=== PATIENT | female | born 1980 | race Caucasian/White ===

== ENCOUNTER → 2018-07-05 | Outpatient (CLI) | payer SELFPAY ==
--- NOTE | 2018-07-05 15:08 | RADIOLOGY REPORT (SQ) ---
EXAM DESCRIPTION: U/S [id number] TRNABD 1GES W/ODOP COMPLETED DATE/TIME: 07/05/2018 1:16 pm REASON FOR STUDY: ENCTR FOR SUPERVISION OF OTHER NORMAL , 1ST TRIMESTER (Z34.81) Z34.81 EN COUNTER FOR SUPRVSN OF NORMAL , FIRST TRIM COMPARISON: None. TECHNIQUE: Transabdominal static and realtime grayscale images acquired of the pelvis. Additional se lected spectral and color Doppler images recorded. All images stored on PACs. bHCG: Not applicable. CLINICAL DATES: LMP 04/11/2018. 12 weeks 1 day. LIMITATIONS: None. FINDINGS: FETUS: Single Living intrauterine . ULTRASOUND EGA: 12 weeks 3 days. ULTRASOUND JOHNNIE: 01/14/2019 EFW: Not applicable less than 20 weeks. CRL: 6 cm. FHR: 163 beats per minute. SURVEY: Too early to assess. AMNIOTIC FLUID: Adequate amount. PLACENTA: Not yet developed due to early gestation. SUBCHORIONIC BLEED: No SIZE OF BLEED: Not applicable. UTERUS: No masses or anomalies. 14.6 x 9.9 x 9 cm. CERVICAL LENGTH: 3 cm. Closed. RIGHT ADNEXA: Ovary not seen. No adnexal free fluid. No adnexal masses. LEFT ADNEXA: Normal ovary with normal vascular flow. 2.6 x 2.2 x 1.9 cm. No adnexal free fluid. No adnexal masses. FREE FLUID: None. OTHER: No other significant finding. IMPRESSION: LIVING INTRAUTERINE . EGA 12 weeks 3 days. Trimester of : First - 0 to 13 weeks. TECHNICAL DOCUMENTATION: JOB ID: [id number]- All Rights Reserved rev-01/27 Reading location - IP/workstation name: [email or web address]
== END ==
LOC: RAD 12:42
PROVIDERS: ATTEND Nurse Practitioner
DX: Z34.81 Encounter for supervision of other normal pregnancy, first trimester (principal)
CPT/HCPCS: 76801

== ENCOUNTER 2018-07-15 14:08 | Emergency (ER) | payer MEDICAID ==
[2018-07-15] MEDS ORDERED: LORAZEPAM 1 MG TABLET PO ONE (14:25)
--- NOTE | 2018-07-15 14:27 | ER Document Report ---
ED Medical Screen (RME) - General Chief Complaint: Anxiety Stated Complaint: ANXIETY, ABDOMINAL PAIN Time Seen by Provider: 07/15/18 14:24 Mode of Arrival: Ambulatory Information source: Patient TRAVEL OUTSIDE OF THE [place] IN LAST 30 DAYS: No - HPI Patient complains to provider of: panic attack Onset: This morning - pt states her boyfriend left her recently when he found out she was . She has been having a panic attack since earlier today. Denies suicidal/homicidal ideation - Related Data Allergies/Adverse Reactions: No Known Allergies Allergy (Unverified 07/15/18 14:09) Physical Exam - Vital signs Vitals: Temp Pulse Resp BP Pulse Ox 98.5 F 103 H 20 137/80 H 98 07/15/18 14:15 07/15/18 14:15 07/15/18 14:15 07/15/18 14:15 07/15/18 14:15 Course - Vital Signs Vital signs: Temp Pulse Resp BP Pulse Ox 98.5 F 103 H 20 137/80 H 98 07/15/18 14:15 07/15/18 14:15 07/15/18 14:15 07/15/18 14:15 07/15/18 14:15 Doctor's Discharge - Discharge Instructions: Anxiety ([facility]) Referrals: CATHERINE BLAIR, [employer] WORK[employer] [Primary Care Provider] - Follow up as needed
[2018-07-15 15:05] LABS: ABSOLUTE BASOPHILS # (AUTO) 0.1 10^3/uL (0.0-0.2); ABSOLUTE EOSINOPHILS # (AUTO) 0.2 10^3/uL (0.0-0.6); ABSOLUTE LYMPHOCYTES (AUTO) 2.5 10^3/uL (0.5-4.7); ABSOLUTE MONOCYTES (AUTO) 1.1 10^3/uL (0.1-1.4); ABSOLUTE NEUT (AUTO) 12.4 10^3/uL (1.7-8.2); BASOPHILS % (AUTO) 0.5 % (0-2); HEMATOCRIT 37.6 % (36.0-47.0); HEMOGLOBIN 12.9 g/dL (12.0-15.5); LYMPHOCYTES % (AUTO) 15.2 % (13-45); MEAN CORPUSCULAR HEMOGLOBIN 26.8 pg (27.0-33.4); MEAN CORPUSCULAR HGB CONC 34.2 g/dL (32.0-36.0); MEAN CORPUSCULAR VOLUME 78 fl (80-97); MONOCYTES % (AUTO) 6.9 % (3-13); PLATELET COUNT 250 10^3/uL (150-450); RED CELL DISTRIBUTION WIDTH 15.8 % (11.5-14.0); SEGMENTED NEUTROPHILS % (AUTO) 76.4 % (42-78); TOTAL CELLS COUNTED % (AUTO) 100 %; WHITE BLOOD COUNT 16.3 10^3/uL (4.0-10.5)
[2018-07-15 15:08] LABS: APPEARANCE,URINE CLOUDY; BILIRUBIN,URINE NEGATIVE (NEGATIVE); COLOR,URINE AMBER; GLUCOSE, URINE NEGATIVE (NEGATIVE); KETONES,URINE 80 mg/dL (NEGATIVE); LEUKOCYTE ESTERASE,URINE NEGATIVE (NEGATIVE); NITRITE,URINE NEGATIVE (NEGATIVE); PROTEIN,URINE NEGATIVE (NEGATIVE); URINE SPECIFIC GRAVITY 1.024
[2018-07-15 15:31] LABS: ALANINE AMINOTRANSFERASE 16 U/L (9-52); ALKALINE PHOSPHATASE 47 U/L (38-126); ASPARTATE AMINO TRANSFERASE 16 U/L (14-36); BILIRUBIN,DIRECT 0.2 mg/dL (0.0-0.4); BILIRUBIN,TOTAL 0.6 mg/dL (0.2-1.3); BLOOD UREA NITROGEN 10 mg/dL (7-20); CALCIUM 10.1 mg/dL (8.4-10.2); CHLORIDE 104 mmol/L (98-107); GLUCOSE 111 mg/dL (75-110); POTASSIUM 3.6 mmol/L (3.6-5.0); SODIUM 142.4 mmol/L (137-145)
[2018-07-15 15:32] LABS: ALBUMIN 4.7 g/dL (3.5-5.0); ANION GAP 13 (5-19); CARBON DIOXIDE 25 mmol/L (22-30); TOTAL PROTEIN 7.9 g/dL (6.3-8.2)
--- NOTE | 2018-07-15 17:35 | ER Document Report ---
ED General - General Chief Complaint: Anxiety Stated Complaint: ANXIETY, ABDOMINAL PAIN Time Seen by Provider: 07/15/18 14:24 Mode of Arrival: Ambulatory TRAVEL OUTSIDE OF THE [place] IN LAST 30 DAYS: No - HPI Patient complains to provider of: Anxiety abdominal pain Notes: Patient coming in with panic attack anxiety along with abdominal cramping. Patient is approximately 13-14 weeks. Patient states that she is currently from her however is with her lovers child who recently informed her that he did not want to be the father of the child and went back to his . The person next the Shi patient states that she has been in contact with his commands as that the patient also has declined responsibility for lease agreements states this has increased stress in her life and therefore had an anxiety attack today has a history of anxiety is currently on clonazepam for her anxiety patient states her recent visit with her psychiatric provider recommend to start her on Latuda however states she is not taking it this medication because she is also she is aware that her Cloxapen is not healthy for the . Patient states she has been taking vitamins and has [facility]. Patient denies any vaginal bleeding at this time. Patient is a with 2 miscarriages. Patient states she has a appointment to see [facility] on July 26. Denies any suicidal homicidal ideation. Denies any fever chills nausea vomiting diarrhea patient initially is calm however becomes quite tearful during the HPI process in obtaining information about her current situation patient was ordered Ativan by the triage provider not myself this is already been administered prior to my evaluation - Related Data Allergies/Adverse Reactions: No Known Allergies Allergy (Verified 07/15/18 14:32) Past Medical History - General Information source: Patient - Social History Smoking Status: Current Every Day Smoker Chew tobacco use (# tins/day): No Frequency of alcohol use: None Drug Abuse: None Family History: Reviewed & Not Pertinent Patient has suicidal ideation: No Patient has homicidal ideation: No Pulmonary Medical History: Reports: Hx Asthma Renal/ Medical History: Denies: Hx Peritoneal Dialysis Psychiatric Medical History: Comment Only: Hx Depression - anxiety Past Surgical History: Reports: Hx Cholecystectomy, Hx Tonsillectomy Review of Systems - Review of Systems Constitutional: No symptoms reported EENT: No symptoms reported Cardiovascular: No symptoms reported Respiratory: No symptoms reported Gastrointestinal: No symptoms reported Genitourinary: No symptoms reported Female Genitourinary: No symptoms reported Musculoskeletal: No symptoms reported Skin: No symptoms reported Hematologic/Lymphatic: No symptoms reported Neurological/Psychological: Anxiety -: Yes All other systems reviewed and negative Physical Exam - Vital signs Vitals: Temp Pulse Resp BP Pulse Ox 98.5 F 103 H 20 137/80 H 98 07/15/18 14:15 07/15/18 14:15 07/15/18 14:15 07/15/18 14:15 07/15/18 14:15 Interpretation: Normal - General General appearance: Appears well, Alert - HEENT Head: Normocephalic, Atraumatic Eyes: Normal Pupils: PERRL - Respiratory Respiratory status: No respiratory distress Chest status: Nontender Breath sounds: Normal Chest palpation: Normal - Cardiovascular Rhythm: Regular Heart sounds: Normal auscultation Murmur: No - Abdominal Inspection: Normal Distension: No distension Bowel sounds: Normal Tenderness: Nontender Organomegaly: No organomegaly - Back Back: Normal, Nontender - Extremities General upper extremity: Normal inspection, Nontender, Normal color, Normal ROM , Normal temperature General lower extremity: Normal inspection, Nontender, Normal color, Normal ROM , Normal temperature, Normal weight bearing. No: Opal's sign - Neurological Neuro grossly intact: Yes Cognition: Normal Orientation: AAOx4 Marisel Coma Scale Eye Opening: Spontaneous Marisel Coma Scale Verbal: Oriented [place] Coma Scale Motor: Obeys Commands Marisel Coma Scale Total: 15 Speech: Normal Motor strength normal: LUE, RUE, LLE, RLE Sensory: Normal - Psychological Associated symptoms: Normal affect, Normal mood - Skin Skin Temperature: Warm Skin Moisture: Dry Skin Color: Normal Course - Re-evaluation Re-evalutation: 07/15/18 22:54 Patient was evaluated by psychiatric team and recommended to follow-up with her primary care provider. Bedside ultrasound showed heart rate of 140-143 with positive motion. Patient laboratory studies not revealing critical pathology at this time I recommend patient continue on with a good diet drinking plenty of fluids patient states understanding patient was given resources for follow-up patient was discharged home - Vital Signs Vital signs: Temp Pulse Resp BP Pulse Ox 98.4 F 80 16 112/74 100 07/15/18 18:04 07/15/18 18:04 07/15/18 18:04 07/15/18 18:04 07/15/18 18:04 - Laboratory Result Diagrams: 07/15/18 14:35 07/15/18 14:35 Laboratory results interpreted by me: 07/15/18 07/15/18 07/15/18 14:35 14:35 14:35 WBC 16.3 H MCV 78 L MCH 26.8 L RDW 15.8 H Absolute Neutrophils 12.4 H Creatinine 0.51 L Glucose 111 H Beta HCG, Quant Urine Ketones 80 H Urine Urobilinogen 2.0 H Urine Ascorbic Acid 40 H Urine HCG, Qual POSITIVE H 07/15/18 14:35 WBC MCV MCH RDW Absolute Neutrophils Creatinine Glucose Beta HCG, Quant 90023.00 H Urine Ketones Urine Urobilinogen Urine Ascorbic Acid Urine HCG, Qual Procedures - Ultrasound/Bedside heart tones Notes: 07/15/18 22:55 Bedside ultrasound shows heart tones at 140-143. Is positive motion Discharge - Discharge Clinical Impression: Anxiety Qualifiers: Weeks of gestation: 13 weeks Qualified Code(s): Z3A.13 - 13 weeks gestation of Condition: Stable Disposition: HOME, SELF-CARE Instructions: Anxiety ([facility]), ([facility]) Additional Instructions: Laboratory studies not show any acute findings at this time. I recommend she follow-up with your primary care physician return to the ER symptoms worsen. I highly recommend she follow-up with your therapist to aid with weaning off of your anxiety medication. I recommended we start you on a medication called Vistaril to take at nighttime. He may also use Reglan as needed for any nausea that she may have. For nausea and vomiting during I recomment: Start with 10-12.5 mg of pyridoxine (vitamin B6) three times a day for 2 days. If not fully effective, Increase to 12.5 mg of pyridoxine four times a day for 2 days. If not fully effective, Increase to 25 mg of pyridoxine three times a day for 2 days. If not fully effective, Continue 25 mg pyridoxine 3 times a day, and add 12.5 mg of doxylamine before bedtime each day for 2 days. If not fully effective, Continue 25 mg pyridoxine 3 times a day, and take 12.5 mg of doxylamine twice a day. If not fully effective, Continue 25 mg pyridoxine 3 times a day, and take 12.5 mg of doxylamine three times a day. If not fully effective, Continue 25 mg pyridoxine 3 times a day, and 12.5 mg of doxylamine 3 times a day , while adding Emetrol, one to two tablespoons (15-30 cc) taken once or twice a day as needed. (Emetrol is an zoaj-pwo-zasukxy mixture of sugar syrups and phosphoric acid [phosphorylated carbohydrate solution]) that acts by soothing the actual wall of the gastrointestinal tract). If not fully effective, Consult with your doctor. Anxiety The physician feels that some of your health problems are being caused by anxiety. Anxiety affects your health in many ways. Anxiety alone can cause palpitations, sweats, chest pains, abdominal pains, shortness of breath, and headaches. It contributes to ulcer disease, high blood pressure, irritable bowel syndrome, and has been shown to cause flare-ups of many other diseases. Anxiety is not a simple disorder to treat. If the anxiety is due to recent life stresses, you may simply need time to "work through" the changes. If the anxiety is due to an underlying unhappiness with yourself or due to psychiatric disturbance, professional help will be needed. Your physician can refer you for further help if needed. Anti-anxiety medication is occasionally given if the stress is acute or if you are having trouble sleeping. Chronic or frequent use of these medications is not a good idea because the body becomes reliant on it, preventing you from dealing with life's normal stresses. Prescriptions: Hydroxyzine Pamoate [Vistaril 25 mg Capsule] 25 mg PO QHS #14 capsule Metoclopramide HCl [Reglan] 5 mg PO Q6 #30 tablet Referrals: CATHERINE BLAIR APRN [NO LOCAL MD] - Follow up as needed
[2018-07-15] MEDS ORDERED: HYDROXYZINE PAMOATE 25 MG CAPSULE PO ONE (17:46)
[2018-07-15 18:05] VITALS: BP 112/74
--- NOTE | 2018-07-15 18:27 | PSYCHOLOGICAL NOTE ---
Psych Note - Psych Note Psych Note: Reason for consult: anxiety Pt into ER today with c/o severe panic attack. Pt states she is 13 weeks . The father of her baby left her 3 days ago to reconcile with his . PT states she has only slept 4 hours in the last 3 days and is in panic. She is treated for anxiety and took clonazepam this morning at 0530. It did not help. On arrival to ER, pt is actively crying and clutching her stomach stating she is cramping. Patient states that earlier today she began to feel uneasy and thought she was having a panic attack. Patient disclosed that the father of her baby left their home on night and has no plans to return back to the home. Patient states that she is 13 weeks and that he is the father of her unborn child. Patient states that since he left she has been unable to sleep or eat, just overall sad about her situation. Patient states that she was prescribed clonazepam by Dr. Gonzáles on 06/05/18 and has been taking it as prescribed. Patient denies suicidal ideation. Patient denies homicidal ideation. Patient confirmed that she does not own any weapons or have weapons in the home. Patient states that she is considering moving back [place], where she is from and she has family support. Patient states that she is receiving services through the [facility] and has an appointment with [facility] later this month for mental health services. Patient states that she has been in contact with the patient's command and that they will assist her in any way possible. Patient is alert and oriented to person, place, time and circumstance. Patient' s mood is dysphoric with a tearful affect. Patient demonstrates a organized and linear thought process. Eye Contact is well maintained. Conversational speech was within normal rate, tone and prosody. Intellectual abilities appear to be within the average range. Attention and concentration were fair. Insight, judgment and impulse control are good. No medication recommendations at this time Diagnosis 300.02 (F41.1) Generalized Anxiety Disorder Impression/Plan: Patient is cleared from acute psychiatric services. Patient denies suicidal ideation. Patient denies homicidal ideation. Patient has an appointment with [facility] later this month and is receiving case management services through [facility]. Patient's family is in [place] and is supportive and will be helping her with any transition back to [place]. Dr. Nava was consulted on the care and management of this patient ; attending physician is in agreement with recommendations and disposition.
== END 2018-07-15 18:04 | disposition home or self-care (01) ==
LOC: ER 14:08
DX: O99.341 Other mental disorders complicating pregnancy, first trimester (principal); F41.9 Anxiety disorder, unspecified; Z79.899 Other long term (current) drug therapy; O26.891 Other specified pregnancy related conditions, first trimester; R10.9 Unspecified abdominal pain; O99.331 Smoking (tobacco) complicating pregnancy, first trimester; O99.511 Diseases of the respiratory system complicating pregnancy, first trimester; J45.909 Unspecified asthma, uncomplicated; Z3A.13 13 weeks gestation of pregnancy; Z63.0 Problems in relationship with spouse or partner; Z87.59 Personal history of other complications of pregnancy, childbirth and the puerperium
CPT/HCPCS: 99285; 36415; 84702; 85025; 81025; 80053; 81001; J3490

== ENCOUNTER 2018-07-17 15:31 | Emergency (ER) | payer MEDICAID ==
--- NOTE | 2018-07-17 15:52 | ER Document Report ---
ED Medical Screen (RME) - General Chief Complaint: Shortness Of Breath Stated Complaint: DIFFICULTY BREATHING Time Seen by Provider: 07/17/18 15:42 Mode of Arrival: Ambulatory Information source: Patient Notes: 38-year-old female who is 14 weeks presents emergency department with complaints of panic attack. Patient states that her significant other in the baby's father walked out on them on . Patient states that she has had increased stress since then. She states that she has been having panic attacks as a result of this. She states that she is currently taking clonazepam. She states that she was unable to fill the prescription for Vistaril. Patient feels the baby moving. She has an appointment with her [employer] tomorrow. I have greeted and performed a rapid initial assessment of this patient. A comprehensive ED assessment and evaluation of the patient, analysis of test results and completion of the medical decision making process will be conducted by additional ED providers. PHYSICAL EXAMINATION: GENERAL: Well-appearing, well-nourished and in no acute distress. HEAD: Atraumatic, normocephalic. EYES: Pupils equal round extraocular movements intact, conjunctiva are normal. ENT: Nares patent NECK: Normal range of motion LUNGS: No respiratory distress Musculoskeletal: Normal range of motion NEUROLOGICAL: Normal speech, normal gait. PSYCH: Normal mood, normal affect. SKIN: Warm, Dry, normal turgor, no rashes or lesions noted. TRAVEL OUTSIDE OF THE [place] IN LAST 30 DAYS: No - Related Data Allergies/Adverse Reactions: No Known Allergies Allergy (Verified 07/15/18 14:32) Past Medical History - Social History Frequency of alcohol use: None Drug Abuse: None Pulmonary Medical History: Reports: Hx Asthma Renal/ Medical History: Denies: Hx Peritoneal Dialysis Psychiatric Medical History: Comment Only: Hx Depression - anxiety Past Surgical History: Reports: Hx Cholecystectomy, Hx Tonsillectomy Physical Exam - Vital signs Vitals: Temp Pulse Resp BP Pulse Ox 98.8 F 97 20 125/74 98 07/17/18 15:36 07/17/18 15:36 07/17/18 15:36 07/17/18 15:36 07/17/18 15:36 Course - Vital Signs Vital signs: Temp Pulse Resp BP Pulse Ox 98.8 F 97 20 125/74 98 07/17/18 15:36 07/17/18 15:36 07/17/18 15:36 07/17/18 15:36 07/17/18 15:36
[2018-07-17 16:25] LABS: ABSOLUTE EOSINOPHILS # (AUTO) 0.1 10^3/uL (0.0-0.6); ABSOLUTE LYMPHOCYTES (AUTO) 2.7 10^3/uL (0.5-4.7); ABSOLUTE NEUT (AUTO) 9.9 10^3/uL (1.7-8.2); BASOPHILS % (AUTO) 0.3 % (0-2); EOSINOPHILS % (AUTO) 0.9 % (0-6); HEMATOCRIT 38.5 % (36.0-47.0); HEMOGLOBIN 13.2 g/dL (12.0-15.5); LYMPHOCYTES % (AUTO) 19.4 % (13-45); MEAN CORPUSCULAR HEMOGLOBIN 26.8 pg (27.0-33.4); MEAN CORPUSCULAR HGB CONC 34.1 g/dL (32.0-36.0); MEAN CORPUSCULAR VOLUME 79 fl (80-97); MONOCYTES % (AUTO) 7.4 % (3-13); PLATELET COUNT 259 10^3/uL (150-450); RED CELL DISTRIBUTION WIDTH 15.2 % (11.5-14.0); TOTAL CELLS COUNTED % (AUTO) 100 %; WHITE BLOOD COUNT 13.7 10^3/uL (4.0-10.5)
[2018-07-17 16:37] LABS: BLOOD UREA NITROGEN 7 mg/dL (7-20); CALCIUM 9.7 mg/dL (8.4-10.2); GLUCOSE 81 mg/dL (75-110)
[2018-07-17 16:38] LABS: ALANINE AMINOTRANSFERASE 18 U/L (9-52); ALBUMIN 4.6 g/dL (3.5-5.0); ALKALINE PHOSPHATASE 48 U/L (38-126); ANION GAP 15 (5-19); ASPARTATE AMINO TRANSFERASE 22 U/L (14-36); BILIRUBIN,DIRECT 0.1 mg/dL (0.0-0.4); BILIRUBIN,TOTAL 0.5 mg/dL (0.2-1.3); CARBON DIOXIDE 23 mmol/L (22-30); CHLORIDE 101 mmol/L (98-107); POTASSIUM 3.4 mmol/L (3.6-5.0); TOTAL PROTEIN 7.8 g/dL (6.3-8.2)
[2018-07-17 17:03] LABS: APPEARANCE,URINE SLIGHTLY-CLOUDY; BILIRUBIN,URINE NEGATIVE (NEGATIVE); COLOR,URINE YELLOW; GLUCOSE, URINE NEGATIVE (NEGATIVE); KETONES,URINE 20 mg/dL (NEGATIVE); LEUKOCYTE ESTERASE,URINE NEGATIVE (NEGATIVE); NITRITE,URINE NEGATIVE (NEGATIVE); PROTEIN,URINE NEGATIVE (NEGATIVE); URINE SPECIFIC GRAVITY 1.008; UROBILINOGEN,URINE NEGATIVE mg/dL (<2.0)
[2018-07-17 17:24] LABS: URINE AMPHETAMINES SCREEN NEGATIVE; URINE BARBITURATES SCREEN NEGATIVE; URINE BENZODIAZEPINES SCREEN NEGATIVE; URINE COCAINE SCREEN NEGATIVE; URINE MARIJUANA (THC) SCREEN NEGATIVE; URINE METHADONE SCREEN NEGATIVE; URINE PHENCYCLIDINE SCREEN NEGATIVE
--- NOTE | 2018-07-17 18:35 | EKG REPORT ---
SEVERITY:- NORMAL ECG - SINUS RHYTHM : Confirmed by: Sen Suero MD 17-Jul-2018 18:35:28
--- NOTE | 2018-07-17 20:43 | RADIOLOGY REPORT (SQ) ---
EXAM DESCRIPTION: U/S OB 14+ TRNABD 1GES W/O DOP COMPLETED DATE/TIME: 07/17/2018 8:24 pm REASON FOR STUDY: pelvic and lower abdominal pain COMPARISON: 07/05/2018 TECHNIQUE: Static and Dynamic grayscale imaging performed of gravid uterus using transabdominal appr oach. Additional selected color Doppler and spectral images recorded. All stored on PACS. LIMITATIONS: None. FINDINGS: FETUSES SEEN:1 EGA: 14 weeks 3 days Calculated using BPD,FL,HC,AC documented on images. No discrepancy with clinica l dates. JOHNNIE: 01/12/2019 EFW: Not applicable. Grams PERCENTILE: Not applicable. MACK: Adequate PLACENTA: Posterior, low lying. Grade 1 PRESENTATION: Cephalic. ANATOMY: HEART RATE: 145 beats per minute. anatomical survey not performed. MATERNAL ADNEXA: Maternal ovaries not visualized. CERVICAL LENGTH: 3.8 cm. Closed. OTHER: No other significant finding. IMPRESSION: LIVING INTRAUTERINE . ESTIMATED GESTATIONAL AGE 14 weeks 3 days. NO VISUALIZED ANOMALIES. Trimester of : Second trimester - 13 weeks 1 day to 27 weeks 6 days. TECHNICAL DOCUMENTATION: JOB ID: [id number] [employer]- All Rights Reserved Reading location - IP/workstation name: [email or web address]
--- NOTE | 2018-07-17 21:15 | ER Document Report ---
ED GI/ - General Chief Complaint: Shortness Of Breath Stated Complaint: DIFFICULTY BREATHING Time Seen by Provider: 07/17/18 15:42 Mode of Arrival: Ambulatory Information source: Patient Notes: 38-year-old female presented to ED for complaints of panic attack shortness of breath and pelvic pain. She states she been having a panic attack due to all the stress in her life at this time. She states the babies father decided to walk out on her and is gone back to his . She states she left her for him and now she is having a lot of stress and panic attacks due to this. She states she is taking clonazepam for the anxiety and stress. She states she has been told that this is okay with her baby. She states she does feel the baby moving and she has an appointment with [facility] tomorrow. TRAVEL OUTSIDE OF THE [place] IN LAST 30 DAYS: No - HPI Patient complains to provider of: Abdominal pain, Pelvic pain, Onset: Other - Off and on for several days Timing/Duration: Intermittent Quality of pain: Cramping, Sharp Severity at maximum: Moderate Severity in ED: Moderate Pain Level: 3 Location: Pelvis, Other - Lateral lower abdomen Vaginal bleeding (Compared to normal period): None Menstrual period history: : 6 Para: 3 heart tones (bpm): 148 EDC: 01/12/19 OB ultrasound done: Yes Associated symptoms: Shortness of breath, Other - Panic attacks and pelvic and abdominal pain Exacerbated by: Movement, Walking Relieved by: Denies Similar symptoms previously: Yes Recently seen / treated by doctor: No - Related Data Allergies/Adverse Reactions: No Known Allergies Allergy (Verified 07/15/18 14:32) Past Medical History - General Information source: Patient - Social History Smoking Status: Current Every Day Smoker Cigarette use (# per day): Yes - Several cigarettes a day Smoking Education Provided: Yes - 4 minutes Frequency of alcohol use: None Drug Abuse: None Lives with: Alone Family History: Reviewed & Not Pertinent Patient has suicidal ideation: No Patient has homicidal ideation: No - Past Medical History Cardiac Medical History: Reports: None Pulmonary Medical History: Reports: Hx Asthma EENT Medical History: Reports: None Neurological Medical History: Reports: None Endocrine Medical History: Reports: None Renal/ Medical History: Reports: None Malignancy Medical History: Reports: None GI Medical History: Reports: None Musculoskeletal Medical History: Reports None Skin Medical History: Reports None Psychiatric Medical History: Reports: Hx Anxiety - Panic attacks, Hx Depression Traumatic Medical History: Reports: None Infectious Medical History: Reports: None Past Surgical History: Reports: Hx Cholecystectomy, Hx Tonsillectomy Review of Systems - Review of Systems Constitutional: No symptoms reported EENT: No symptoms reported Cardiovascular: No symptoms reported Respiratory: Short of breath Gastrointestinal: Abdominal pain Genitourinary: No symptoms reported Female Genitourinary: , Other - Pelvic pain Musculoskeletal: No symptoms reported Skin: No symptoms reported Hematologic/Lymphatic: No symptoms reported Neurological/Psychological: No symptoms reported -: Yes All other systems reviewed and negative Physical Exam - Vital signs Vitals: Temp Pulse Resp BP Pulse Ox 98.8 F 97 20 125/74 98 07/17/18 15:36 07/17/18 15:36 07/17/18 15:36 07/17/18 15:36 07/17/18 15:36 Interpretation: Normal - General General appearance: Appears well, Alert - HEENT Head: Normocephalic, Atraumatic Eyes: Normal Pupils: PERRL - Respiratory Respiratory status: No respiratory distress Chest status: Nontender Breath sounds: Normal Chest palpation: Normal - Cardiovascular Rhythm: Regular Heart sounds: Normal auscultation Murmur: No - Abdominal Inspection: Gravid female Distension: No distension Bowel sounds: Normal Tenderness: Tender - Lower abdomen bilateral Organomegaly: No organomegaly - Genitourinary External exam: Normal Speculum exam: Normal - Back Back: Normal, Nontender - Extremities General upper extremity: Normal inspection, Nontender, Normal color, Normal ROM , Normal temperature General lower extremity: Normal inspection, Nontender, Normal color, Normal ROM , Normal temperature, Normal weight bearing. No: Opal's sign - Neurological Neuro grossly intact: Yes Cognition: Normal Orientation: AAOx4 Phil[place] Coma Scale Eye Opening: Spontaneous Marisel Coma Scale Verbal: Oriented [place] Coma Scale Motor: Obeys Commands Marisel Coma Scale Total: 15 Speech: Normal Motor strength normal: LUE, RUE, LLE, RLE Sensory: Normal - Psychological Associated symptoms: Normal affect, Normal mood - Skin Skin Temperature: Warm Skin Moisture: Dry Skin Color: Normal Course - Vital Signs Vital signs: Temp Pulse Resp BP Pulse Ox 98.6 F 83 16 128/83 H 99 07/17/18 21:23 07/17/18 21:23 07/17/18 21:23 07/17/18 21:23 07/17/18 21:23 - Laboratory Result Diagrams: 07/17/18 15:59 07/17/18 15:59 Laboratory results interpreted by me: 07/17/18 07/17/18 07/17/18 15:59 15:59 15:59 WBC 13.7 H MCV 79 L MCH 26.8 L RDW 15.2 H Absolute Neutrophils 9.9 H Potassium 3.4 L Creatinine 0.49 L Beta HCG, Quant 43080.00 H Urine Ketones 07/17/18 15:59 WBC MCV MCH RDW Absolute Neutrophils Potassium Creatinine Beta HCG, Quant Urine Ketones 20 H - Diagnostic Test Radiology reviewed: Image reviewed, Reports reviewed Discharge - Discharge Clinical Impression: Pelvic pain during in second trimester, antepartum Condition: Stable Disposition: HOME, SELF-CARE Additional Instructions: Pelvic Pain and Round Ligament Pain Lower abdominal pain during can have many causes. We look for serious causes such as appendicitis, tubal , miscarriage, placental separation, or urinary tract infection. Less serious causes of pain include corpus luteum cyst (ovarian cyst of ) or stretching of the pelvic tissues by the enlarging uterus. Sometimes the pain comes from the bowels. If no specific cause for the pain is found, we attribute the pain to stretching of the uterine ligaments. This is called "round ligament strain." It is not dangerous. Just rest until the pain goes away. Call us or come back for reexamination if any problems occur, such as: (1) Pain that becomes more severe, steady, or becomes concentrated in one specific area. Also, pain that is more severe with movement or coughing. (2) Vomiting that persists or becomes more frequent. (3) Blood in the vomitus, urine, or bowel movements. Blood in the stool may have a tarry or black appearance. (4) Shaking chills or fever greater than 100 degrees. (5) The abdomen becomes more distended or swollen. (6) Bowel movements cease. (7) Vaginal bleeding. Acetaminophen Acetaminophen may be taken for pain relief or fever control. It's much safer than aspirin, offering a wider range of "safe" dosages. It is safe during . Some brand names are Tylenol, Panadol, Datril, Anacin 3, Tempra, and Liquiprin. Acetaminophen can be repeated every four hours. The following are maximum recommended dosages: WEIGHT Dose Drops Elixir Chewable( 80mg) (LBS.) drprs=droppers tsp=teaspoon 6 40 mg .4 ml (1/2) 6-11 80 mg .8 ml (full) 1/2 tsp 1 tab 12-16 120 mg 1 1/2 drprs 3/4 tsp 1 1/2 tabs 17-23 160 mg 2 drprs 1 tsp 2 tabs 24-30 240 mg 3 drprs 1 1/2 tsp 3 tabs 30-35 320 mg 2 tsp 4 tabs 36-41 360 mg 2 1/4 tsp 4 1 /2 tabs 42-47 400 mg 2 1/2 tsp 5 tabs 48-53 480 mg 3 tsp 6 tabs 54-59 520 mg 3 1/4 tsp 6 1 /2 tabs 60-64 560 mg 3 1/2 tsp 7 tabs 65-70 600 mg 3 3/4 tsp 7 1 /2 tabs 71-76 640 mg 4 tsp 8 tabs 77-82 720 mg 4 1/2 tsp 9 tabs 83-88 800 mg 5 tsp 10 tabs >89 pounds or adults 650 mg to 900 mg Acetaminophen can be repeated every four hours. Maximum daily dose not to exceed 4000 mg. These maximum recommended dosages are slightly higher than the dosages written on the product container, but these dosages are very safe and well below the toxic dosage for acetaminophen. FOLLOW-UP CARE: If you have been referred to a physician for follow-up care, call the physician s office for an appointment as you were instructed or within the next two days. If you experience worsening or a significant change in your symptoms, notify the physician immediately or return to the Emergency Department at any time for re-evaluation. Forms: Smoking Cessation Education Referrals: [facility] [Provider Group] - Follow up as needed
[2018-07-17 21:26] VITALS: BP 128/83
== END 2018-07-17 21:27 | disposition home or self-care (01) ==
LOC: ER 15:31
DX: O26.892 Other specified pregnancy related conditions, second trimester (principal); R06.02 Shortness of breath; R10.2 Pelvic and perineal pain; F41.9 Anxiety disorder, unspecified; O99.332 Smoking (tobacco) complicating pregnancy, second trimester; Z3A.14 14 weeks gestation of pregnancy; Z79.899 Other long term (current) drug therapy; J45.909 Unspecified asthma, uncomplicated
CPT/HCPCS: 36415; 76805; 80053; 80307; 81001; 84702; 85025; 87086; 93005; 93010; 99284; 99406

== ENCOUNTER 2018-12-16 20:19 | Outpatient (CLI) | payer MEDICAID ==
[2018-12-16 21:18] LABS: APPEARANCE,URINE SLIGHTLY-CLOUDY; BILIRUBIN,URINE NEGATIVE (NEGATIVE); COLOR,URINE YELLOW; GLUCOSE, URINE NEGATIVE (NEGATIVE); KETONES,URINE NEGATIVE (NEGATIVE); LEUKOCYTE ESTERASE,URINE NEGATIVE (NEGATIVE); NITRITE,URINE NEGATIVE (NEGATIVE); PROTEIN,URINE NEGATIVE (NEGATIVE); URINE SPECIFIC GRAVITY 1.013
[2018-12-16 21:39] LABS: URINE AMPHETAMINES SCREEN NEGATIVE; URINE BARBITURATES SCREEN NEGATIVE; URINE BENZODIAZEPINES SCREEN NEGATIVE; URINE COCAINE SCREEN NEGATIVE; URINE MARIJUANA (THC) SCREEN NEGATIVE; URINE METHADONE SCREEN NEGATIVE; URINE PHENCYCLIDINE SCREEN NEGATIVE
--- NOTE | 2018-12-16 23:21 | Non Stress Test Report ---
Non Stress Test Datetime Report Generated by CPN: 12/16/2018 23:21 DEMOGRAPHIC EGA NST: 35.6 INDICATION Indication for Study: Ordered by Provider Indication for Study (NST) Other: LC URINE RESULTS Urine Protein, NST: Negative Urine Ketones - NST: Negative Urine Glucose - NST: Negative Urine Blood - NST: Negative MONITORING Monitor Explained: Monitor Explained; Test Explained; Patient Verbalized Understanding Time on Monitor: 12/16/2018 20:53 Time off Monitor: 12/16/2018 23:15 NST Duration: 142 NST INTERVENTIONS NST Interventions: PO Hydration Physician Notified NST: Bacilio BABY A: [id number] BABY A Movement : Present Contraction Frequency : irregular FHR Baseline : 130 Accelerations : 15X15 Decelerations : None Variability : Moderate 6-25bpm NST Review: Meets Criteria for Reactive NST NST Review and Verified By : Romina Matias RN NST Results: Reactive NST REPORT Report Trigger: Send Report
== END 2018-12-16 23:27 | disposition home or self-care (01) ==
LOC: LC 20:19
PROVIDERS: ATTEND Obstetrics & Gynecology
PROC: 4A1HXCZ Monitoring of Products of Conception, Cardiac Rate, External Approach (ICD-10-PCS; principal; 2018-12-16)
DX: O47.03 False labor before 37 completed weeks of gestation, third trimester (principal); O36.8130 Decreased fetal movements, third trimester, not applicable or unspecified; O99.333 Smoking (tobacco) complicating pregnancy, third trimester; F17.210 Nicotine dependence, cigarettes, uncomplicated; O09.523 Supervision of elderly multigravida, third trimester; Z3A.35 35 weeks gestation of pregnancy
CPT/HCPCS: 59025; 80307; 81001; 84112

== ENCOUNTER 2018-12-18 22:01 | Outpatient (CLI) | payer MEDICAID ==
[2018-12-18 22:39] LABS: APPEARANCE,URINE SLIGHTLY-CLOUDY; BILIRUBIN,URINE NEGATIVE (NEGATIVE); COLOR,URINE YELLOW; GLUCOSE, URINE NEGATIVE (NEGATIVE); KETONES,URINE 20 mg/dL (NEGATIVE); LEUKOCYTE ESTERASE,URINE TRACE (NEGATIVE); NITRITE,URINE NEGATIVE (NEGATIVE); PROTEIN,URINE NEGATIVE (NEGATIVE); URINE SPECIFIC GRAVITY 1.023
[2018-12-18 22:54] LABS: URINE AMPHETAMINES SCREEN NEGATIVE; URINE BARBITURATES SCREEN NEGATIVE; URINE BENZODIAZEPINES SCREEN NEGATIVE; URINE COCAINE SCREEN NEGATIVE; URINE MARIJUANA (THC) SCREEN NEGATIVE; URINE METHADONE SCREEN NEGATIVE; URINE PHENCYCLIDINE SCREEN NEGATIVE
--- NOTE | 2018-12-18 22:55 | Non Stress Test Report ---
Non Stress Test Datetime Report Generated by CPN: 12/18/2018 22:55 DEMOGRAPHIC EGA NST: 36.1 INDICATION Indication for Study: Ordered by Provider MONITORING Monitor Explained: Monitor Explained; Test Explained; Patient Verbalized Understanding Time on Monitor: 12/18/2018 22:16 Time off Monitor: 12/18/2018 22:52 NST Duration: 36 NST INTERVENTIONS NST Interventions: PO Hydration Physician Notified NST: Pa BABY A: [id number] BABY A Movement : Present Contraction Frequency : none FHR Baseline : 125 Accelerations : Prolonged Decelerations : None Variability : Moderate 6-25bpm NST Review: Meets Criteria for Reactive NST NST Review and Verified By : Alisa DELVALLE Results: Reactive NST REPORT Report Trigger: Send Report
[2018-12-18] MEDS ORDERED: HYDROXYZINE PAMOATE 50 MG CAPSULE ONE (23:19)
[2018-12-18] MEDS ORDERED: HYDROXYZINE PAMOATE 50 MG CAPSULE PO ONE (23:45)
== END 2018-12-18 23:31 | disposition home or self-care (01) ==
LOC: LC 22:01
PROVIDERS: ATTEND Obstetrics & Gynecology
PROC: 4A1HXCZ Monitoring of Products of Conception, Cardiac Rate, External Approach (ICD-10-PCS; principal; 2018-12-18)
DX: O47.03 False labor before 37 completed weeks of gestation, third trimester (principal); O36.8330 Maternal care for abnormalities of the fetal heart rate or rhythm, third trimester, not applicable or unspecified; O99.333 Smoking (tobacco) complicating pregnancy, third trimester; F17.210 Nicotine dependence, cigarettes, uncomplicated; O09.523 Supervision of elderly multigravida, third trimester; Z3A.36 36 weeks gestation of pregnancy
CPT/HCPCS: 59025; 81005; 80307; J3490

== ENCOUNTER 2018-12-25 15:38 | Inpatient (IN) | payer MEDICAID ==
[2018-12-25] MEDS ORDERED: RINGERS SOLUTION,LACTATED 1,000 ML IV PRN (16:22)
[2018-12-25] MEDS ORDERED: PENICILLIN G POTASSIUM 5,000,000 UNIT in DEXTROSE 5%-WATER 100 ML IV ONE (16:22)
[2018-12-25] MEDS ORDERED: MISOPROSTOL 0.2 MG TABLET ONE (16:37)
[2018-12-25] MEDS ORDERED: LIDOCAINE 1% INJ-PF (10 MG/ML) 30 ML SDV ONE (16:38)
[2018-12-25] MEDS ORDERED: OXYTOCIN/NORMAL SALINE 20 UNIT/1,000 ML RTUINJ ONE (16:38)
[2018-12-25] MEDS ORDERED: PENICILLIN G-K 5 MILLION UNIT VIAL ONE (16:38)
[2018-12-25 16:47] LABS: APPEARANCE,URINE CLOUDY; BILIRUBIN,URINE NEGATIVE (NEGATIVE); GLUCOSE, URINE NEGATIVE (NEGATIVE); KETONES,URINE 80 mg/dL (NEGATIVE); LEUKOCYTE ESTERASE,URINE LARGE (NEGATIVE); NITRITE,URINE NEGATIVE (NEGATIVE); PROTEIN,URINE 30 mg/dL (NEGATIVE); URINE SPECIFIC GRAVITY 1.014
--- NOTE | 2018-12-25 16:50 | Admission Physical ---
Datetime Report Generated by CPN: 12/25/2018 16:49 CURRENT ADMISSION Chief Complaint: Uterine Contractions Indication for Induction: Not Applicable Admit Impression : Term, Intrauterine ; Active Labor Admit Plan: Admit to Unit; Initiate Labor Protocol ALLERGIES Medication Allergies: No Medication Allergies: No Known Allergies (12/25/2018) Latex: No Latex Allergies Food Allergies: none Environmental Allergies: none OBSTETRICAL HISTORY EDC: 01/14/2019 00:00 : 6 Para: 3 Term: 3 : 0 SAB: 2 IAB: 0 Ectopic: 0 Livin Cesareans: 0 VBACs: 0 Multiple Births: 0 Gestational Diabetes: Yes Rh Sensitization: No Incompetent Cervix: No STONEY: No Infertility: No ART Treatment: No Uterine Anomaly: No IUGR: No Hx Previous C/S: No Macrosomia: No Hx Loss/Stillborn: No PIH: No Hx : No Placenta Previa/Abruption: No Depression/PP Depression: No PTL/PROM: No Post Hemorrhage: No Current Procedures: Ultrasound; NST Obstetrical History Comments: G1 - 2000 Girl 8 lbs 11 oz G2 - 2002 Boy 9 lb 4 oz G3 - 2009 Boy 9 lb 4.5 oz G4 - 2011 SAB G5 - 2013 SAB G6 - current, GDM diet controlled SEE RECORDS Alcohol: No Marijuana : No Cocaine: No Other Illicit Drugs: No Cigarettes: Current Everyday Smoker. 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 Heart Disease: No Hosp/Surgery: Yes Autoimmune Disorder: No Anesthetic Complications: No Kidney Disease: No Abnormal Pap Smear: No Neuro/Epilepsy: No Psychiatric Disorders: No Other Medical Diseases: No Hepatitis/Liver Disease: No Significant Family History: No Varicosities/Phlebitis: No Trauma/Violence : No Thyroid Dysfunction: No Medical History Comments: childbirth x3, 2008 cholecystectomy, 2012 tonsillectomy, asthma INFECTIOUS HISTORY Gonorrhea: No Genital Herpes: No Chlamydia: Yes Tuberculosis: No Syphilis: No Hepatitis: No HIV/AIDS Exposure: No Rash or Viral Illness: No HPV: No Infectious History Comments: 2018 - Chlamydia AMDYSON - PHYSICAL EXAM General: Normal HEENT: Normal Neurologic: Normal Thyroid: Normal Heart: Normal Lungs: Normal Breast: Normal Back: Normal Abdomen: Normal Genitourinary Exam: Normal Extremities: Normal DTRs: Normal Pelvic Type: Adequate Vital Signs: Reviewed VAGINAL EXAM Dilatation: 8 Effacement: 90 Station: -1 Contraction Comments: q2-3 MEMBRANES Membranes: Intact FETUS A EGA: 37.1 Monitoring: External US FHR- Baseline: 140 Variability: Marked >25bpm Decelerations: None Admit Comment: presents at 37.1 wks c/o increasing contractions this afternoon. Pt was 5 cm in the office this morning. GBS+. VE /1. Pt denies SROM or bleeding. Desires to labor naturally. Will admit in active labor, start PCN for GBS+ status. ayah Ramirez MD PLANS FOR LABOR AND DELIVERY Labor and Delivery: None Pain Management: Medications Feeding Preference: Formula Benefit of Breast Feed Discussed: Yes Circumcision: Yes INFORMED CONSENT Assignment: Jhonatan Motta MD Signature: with User ID: [email or web address] : with User ID: [email or web address]
[2018-12-25 16:51] LABS: COLOR,URINE YELLOW
[2018-12-25 17:13] LABS: URINE AMPHETAMINES SCREEN NEGATIVE; URINE BARBITURATES SCREEN NEGATIVE; URINE BENZODIAZEPINES SCREEN NEGATIVE; URINE COCAINE SCREEN NEGATIVE; URINE MARIJUANA (THC) SCREEN NEGATIVE; URINE METHADONE SCREEN NEGATIVE; URINE PHENCYCLIDINE SCREEN NEGATIVE
[2018-12-25 17:53] LABS: ABSOLUTE BASOPHILS # (AUTO) 0.1 10^3/uL (0.0-0.2); ABSOLUTE EOSINOPHILS # (AUTO) 0.2 10^3/uL (0.0-0.6); ABSOLUTE LYMPHOCYTES (AUTO) 1.8 10^3/uL (0.5-4.7); ABSOLUTE NEUT (AUTO) 14.4 10^3/uL (1.7-8.2); BASOPHILS % (AUTO) 0.3 % (0-2); HEMATOCRIT 33.2 % (36.0-47.0); LYMPHOCYTES % (AUTO) 10.3 % (13-45); MEAN CORPUSCULAR HGB CONC 33.1 g/dL (32.0-36.0); MEAN CORPUSCULAR VOLUME 79 fl (80-97); MONOCYTES % (AUTO) 5.9 % (3-13); PLATELET COUNT 192 10^3/uL (150-450); RED BLOOD COUNT 4.23 10^6/uL (3.72-5.28); RED CELL DISTRIBUTION WIDTH 14.3 % (11.5-14.0); SEGMENTED NEUTROPHILS % (AUTO) 82.5 % (42-78); TOTAL CELLS COUNTED % (AUTO) 100 %; WHITE BLOOD COUNT 17.5 10^3/uL (4.0-10.5)
[2018-12-25] MEDS ORDERED: GLYCERIN/WITCH HAZEL LEAF 1 EACH MED..PAD TP PRN (18:57)
[2018-12-25] MEDS ORDERED: DIBUCAINE 1% OINTMENT 56 GM TP PRN (18:57)
[2018-12-25] MEDS ORDERED: PROMETHAZINE HCL 25 MG TABLET PO PRN (18:57)
[2018-12-25] MEDS ORDERED: DIPHENHYDRAMINE HCL 25 MG CAPSULE PO PRN (18:57)
[2018-12-25] MEDS ORDERED: PROMETHAZINE HCL 25 MG SUPP.RECT PR PRN (18:57)
[2018-12-25] MEDS ORDERED: ZOLPIDEM TARTRATE 5 MG TABLET PO PRN (18:57)
[2018-12-25] MEDS ORDERED: OXYTOCIN/NORMAL SALINE 20 UNIT/1,000 ML RTUINJ IV PRN (18:57)
[2018-12-25] MEDS ORDERED: DIPH/PERTUSS(ACELL)/TETANUS VAC/PF 0.5 ML SYR (>=10YO) IM PRN (18:57)
[2018-12-25] MEDS ORDERED: MEASLES,MUMPS&RUBELLA VACC/PF 0.5 ML VIAL SUBCUT PRN (18:57)
[2018-12-25] MEDS ORDERED: ACETAMINOPHEN 650 MG SUPP.RECT PR PRN (18:57)
[2018-12-25] MEDS ORDERED: BENZOCAINE/MENTHOL AEROSOL SPRAY 56 ML TOP PRN (18:57)
[2018-12-25] MEDS ORDERED: MAGNESIUM HYDROXIDE SUSP 30 ML UDCUP PO PRN (18:57)
[2018-12-25] MEDS ORDERED: PSEUDOEPHEDRINE HCL 30 MG TABLET PO PRN (18:57)
[2018-12-25] MEDS ORDERED: NA PHOS,M-B/NA PHOS,DI-BA (ADULT) 133 ML ENEMA PR PRN (18:57)
[2018-12-25] MEDS ORDERED: PROMETHAZINE HCL INJ 25 MG/1 ML VIAL IV PRN (18:57)
[2018-12-25] MEDS ORDERED: ACETAMINOPHEN WITH CODEINE #3 TABLET PO PRN (18:57)
[2018-12-25] MEDS ORDERED: PENICILLIN G POTASSIUM 2,500,000 UNIT in DEXTROSE 5%-WATER 50 ML IV SCH (20:24)
[2018-12-25] MEDS ORDERED: IBUPROFEN 800 MG TABLET ONE (20:28)
[2018-12-25] MEDS: IBUPROFEN 800 MG TABLET PO SCH (22:38)
[2018-12-25] MEDS: FAMOTIDINE 20 MG TABLET PO SCH (22:46)
[2018-12-26] MEDS: IBUPROFEN 800 MG TABLET PO SCH ×3 (05:55→22:00)
--- NOTE | 2018-12-26 08:10 | Delivery Summary ---
Del Sum A-C Datetime Report Generated by CPN: 12/26/2018 08:10 DELIVERY PERSONNEL DELIVERY PERSONNEL: [id number] Delivery Doctor:: Jhonatan Motta MD Labor and Delivery Nurse:: Alyx Fang RNlegal counsel Nurse:: DESIRE Fabian Lab Head/SERVICE CAR DRIVER: Amber Dickerson SERVICE CAR DRIVER II Lab Head/SERVICE CAR DRIVER: Fatmata Mirandaillo, P[employer] SHEETS SUPERVISOR MATERNAL INFORMATION Delivery Anesthesia: None Medications After Delivery: Pitocin Bolus-Please Comment Meds After Delivery Comment: Pitocin 20 units in 1000 ml nss open for bolus Estimated Blood Loss (ml): 150 Maternal Complications: None LABOR SUMMARY EDC: 01/14/2019 00:00 No. Babies in Womb: 1 Attempted: No Labor Anesthesia: None LABOR INFORMATION Reason for Induction: Not Applicable Onset of Labor: 12/25/2018 18:17 Complete Dilatation: 12/25/2018 18:34 Oxytocin: N/A Group B Beta Strep: positive Antibiotics # of Doses: 1 Antibiotics Time of Last Dose: 164 Name of Antibiotic Given: Penicillin Steroids Given: None Reason Steroids Not Administered: Not Applicable MEMBRANES Membranes Rupture Method: Artificial Rupture of Membranes: 12/25/2018 18:17 Length of Rupture (hr): 0.47 Amniotic Fluid Color: Clear Amniotic Fluid Amount: Moderate Amniotic Fluid Odor: Normal STAGES OF LABOR Stage 1 hr: 0 Stage 1 min: 17 Stage 2 hr: 0 Stage 2 min: 11 Stage 3 hr: 0 Stage 3 min: 4 Total Time in Labor hr: 0 Total Time in Labor min: 32 VAGINAL DELIVERY Episiotomy: None Laceration #1: None Laceration Extension #1: N/A Laceration Repair: Not Applicable Sponge Count Correct: N/A Sharps Count Correct: N/A CSECTION DELIVERY Primary Indication: N/A Secondary Indication: N/A CSection Incidence: N/A Labor: N/A Elective: N/A CSection Incision: N/A BABY A INFORMATION Delivery Date/Time: 12/25/2018 18:45 Method of Delivery: Vaginal Method of Delivery: Vaginal Method of Delivery: Vaginal Born in Route : No : N/A Forceps: N/A Vacuum Extraction: N/A Shoulder Dystocia : Yes Shoulder Dystocia : No PRESENTATION/POSITION BABY A Presentation: Cephalic Cephalic Presentation: Vertex Cephalic Presentation: Vertex Vertex Position: Right Occipital Anterior Vertex Position: Right Occipital Anterior Breech Presentation: N/A PLACENTA INFORMATION BABY A Placenta Delivery Time : 12/25/2018 18:49 Placenta Method of Delivery: Spontaneous Placenta Method of Delivery: Spontaneous Placenta Status: Delivered SCORES BABY A Heart Rate 1 min: >100 bpm Resp Effort 1 min: Good Cry Reflex Irritability 1 min: Cough or Sneeze or Pulls Away Muscle Tone 1 min: Some Flexion of Extremities Color 1 min: Body Gerrard, Extremities Blue Resuscitation Effort 1 min: Tactile Stimulation SCORE 1 MIN: 8 Heart Rate 5 min: >100 bpm Resp Effort 5 min: Good Cry Reflex Irritability 5 min: Cough or Sneeze or Pulls Away Muscle Tone 5 min: Active Motion Color 5 min: Completely Gerrard Resuscitation Effort 5 min: Tactile Stimulation SCORE 5 MIN: 10 INFORMATION BABY A Gestational Age at Delivery: 37.1 Gestational Status: Early Term- 37- 38.6 Weeks Outcome : Liveborn Infant Condition : Stable Infant Sex: Male Infant Sex: Male IDENTIFICATION BABY A Verification Date/Time: 12/25/2018 19:07 ID Band Number: [id number] Mother's Name Verified: Yes RN Verifying Infant: MOscar Fang RN, R. Bao RN WEIGHT/LENGTH BABY A Birthweight (gm): 3780 Weight (lb): 8 Weight (oz): 5 Length (in): 21.00 Length (cm): 53.34 CORD INFORMATION BABY A No. Cord Vessels: 3 Nuchal Cord : Around Neck x1, Loose Nuchal Cord : Around Neck x1, Loose Nuchal Cord- Other: compouind left hand Cord Blood Taken: Yes-For Eval (Mom's Blood Type - or O+) Cord Blood Taken: Yes-For Storage (Mom's Blood type +) Infant Suction: Mouth; Nose ASSESSMENT BABY A Infant Complications: None Physical Findings at Delivery: Within Normal Limits Infant Respirations: Appears Normal Skin to Skin: Yes Transferred To: Remains with Mother SIGNATURES Signature: with User ID: [email or web address]
[2018-12-26 08:46] LABS: HEMOGLOBIN 10.1 g/dL (12.0-15.5); MEAN CORPUSCULAR HEMOGLOBIN 26.5 pg (27.0-33.4); MEAN CORPUSCULAR HGB CONC 33.6 g/dL (32.0-36.0); MEAN CORPUSCULAR VOLUME 79 fl (80-97); PLATELET COUNT 201 10^3/uL (150-450); RED BLOOD COUNT 3.82 10^6/uL (3.72-5.28); RED CELL DISTRIBUTION WIDTH 14.3 % (11.5-14.0); WHITE BLOOD COUNT 15.7 10^3/uL (4.0-10.5)
--- NOTE | 2018-12-26 08:58 | PDOC PROGRESS REPORT ---
Subjective Progress Note for:: 12/26/18 Subjective:: Patient states that she feels good; decreasing lochia. Patient denies chest pain, shortness breath, fever/chills and nausea/vomiting. She is ambulating and voiding without difficulty. Reason For Visit: Physical Exam - Physical Exam Vital Signs: Temp Pulse Resp BP Pulse Ox 99.5 F 91 16 126/56 H 99 12/25/18 21:15 12/25/18 21:15 12/25/18 21:15 12/25/18 21:15 12/25/18 21:15 Intake & Output 12/25/18 12/26/18 12/27/18 06:59 06:59 06:59 Weight 108.9 kg General appearance: PRESENT: no acute distress Respiratory exam: PRESENT: clear to auscultation adam Cardiovascular exam: PRESENT: RRR GI/Abdominal exam: PRESENT: normal bowel sounds, soft - Fundus firm and below umbilicus Extremities exam: ABSENT: calf tenderness, clubbing, full ROM, joint swelling, pedal edema, tenderness, +1 edema, +2 edema, other Result Laboratory Results: 12/26/18 08:29 12/25/18 12/25/18 12/25/18 16:35 17:05 17:05 WBC 17.5 H RBC 4.23 Hgb 11.0 L Hct 33.2 L MCV 79 L MCH 26.0 L MCHC 33.1 RDW 14.3 H Plt Count 192 Seg Neutrophils % 82.5 H Lymphocytes % 10.3 L Monocytes % 5.9 Eosinophils % 1.0 Basophils % 0.3 Absolute Neutrophils 14.4 H Absolute Lymphocytes 1.8 Absolute Monocytes 1.0 Absolute Eosinophils 0.2 Absolute Basophils 0.1 Urine Color YELLOW Urine Appearance CLOUDY Urine pH 6.0 Ur Specific [place] 1.014 Urine Protein 30 H Urine Glucose (UA) NEGATIVE Urine Ketones 80 H Urine Blood SMALL H Urine Nitrite NEGATIVE Ur Leukocyte Esterase LARGE H Blood Type O POSITIVE Antibody Screen NEGATIVE 12/26/18 08:29 WBC 15.7 H RBC 3.82 Hgb 10.1 L Hct 30.0 L MCV 79 L MCH 26.5 L MCHC 33.6 RDW 14.3 H Plt Count 201 Seg Neutrophils % Lymphocytes % Monocytes % Eosinophils % Basophils % Absolute Neutrophils Absolute Lymphocytes Absolute Monocytes Absolute Eosinophils Absolute Basophils Urine Color Urine Appearance Urine pH Ur Specific [place] Urine Protein Urine Glucose (UA) Urine Ketones Urine Blood Urine Nitrite Ur Leukocyte Esterase Blood Type Antibody Screen Assessment & Plan - Diagnosis (1) Vaginal delivery Is this a current diagnosis for this admission?: Yes (2) Asthma affecting , antepartum Is this a current diagnosis for this admission?: Yes (3) Labor, precipitous, delivered Is this a current diagnosis for this admission?: Yes - Time Time Spent with patient: Less than 15 minutes Within: within 48 hours - Plan Summary Plan Summary: Continue care
[2018-12-26] MEDS: FERROUS SULFATE 325 MG TABLET PO SCH ×2 (10:24→17:54)
[2018-12-26] MEDS: DOCUSATE SODIUM 100 MG CAPSULE PO SCH ×2 (10:24→17:54)
[2018-12-26] MEDS: SENNOSIDES/DOCUSATE 8.6-50 MG 1 EACH TABLET PO SCH (10:24)
[2018-12-26] MEDS: FAMOTIDINE 20 MG TABLET PO SCH ×2 (10:24→22:00)
[2018-12-26] MEDS: PRENATAL VITAMIN W DHA CAPSULE PO SCH (10:24)
[2018-12-27] MEDS: IBUPROFEN 800 MG TABLET PO SCH ×2 (05:09→14:31)
[2018-12-27 08:44] VITALS: BP 113/69
[2018-12-27] MEDS: FERROUS SULFATE 325 MG TABLET PO SCH (10:30)
[2018-12-27] MEDS: PRENATAL VITAMIN W DHA CAPSULE PO SCH (10:31)
[2018-12-27] MEDS: DOCUSATE SODIUM 100 MG CAPSULE PO SCH (10:31)
[2018-12-27] MEDS: SENNOSIDES/DOCUSATE 8.6-50 MG 1 EACH TABLET PO SCH (10:31)
[2018-12-27] MEDS: FAMOTIDINE 20 MG TABLET PO SCH (10:31)
--- NOTE | 2018-12-27 13:04 | PDOC DISCHARGE SUMMARY ---
Final Diagnosis Discharge Date: 12/27/18 - Final Diagnosis (1) Anemia due to acute blood loss Is this a current diagnosis for this admission?: Yes (2) Asthma affecting , antepartum Is this a current diagnosis for this admission?: Yes (3) Current every day smoker Is this a current diagnosis for this admission?: Yes (4) Gestational diabetes mellitus (GDM) affecting Is this a current diagnosis for this admission?: Yes (5) Labor, precipitous, delivered Is this a current diagnosis for this admission?: Yes (6) Vaginal delivery Is this a current diagnosis for this admission?: Yes Discharge Data - Discharge Medication Prescriptions: Ibuprofen [Motrin 800 mg Tablet] 800 mg PO Q8HP PRN #30 tablet PRN Reason: Docusate Sodium [Colace 100 mg Capsule] 100 mg PO BID #60 capsule Ferrous Sulfate [Feosol 325 mg Tablet] 325 mg PO BID #60 tablet Home Medications: Albuterol Sulfate [Proair HFA] 2 puff IH Q4H PRN 07/15/18 Clonazepam 0.25 mg PO DAILY 07/15/18 Pnv No.95/Ferrous Fum/Folic AC [ Multivitamin Tablet] 1 tab PO DAILY 07/15/18 Buspirone HCl [Buspar 5 mg Tablet] 1 tab PO DAILY 12/16/18 Docusate Sodium [Colace 100 mg Capsule] 100 mg PO BID #60 capsule 12/27/18 Ferrous Sulfate [Feosol 325 mg Tablet] 325 mg PO BID #60 tablet 12/27/18 Ibuprofen [Motrin 800 mg Tablet] 800 mg PO Q8HP PRN #30 tablet 12/27/18 Reason(s) for Admission: Onset of Labor Procedures: NST, Ultrasound Intrapartum Procedure(s): Spontaneous Vaginal Delivery - Diagnosis Test Laboratory: Temp Pulse Resp BP Pulse Ox 97.3 F 65 15 113/69 99 12/27/18 08:31 12/27/18 08:31 12/27/18 08:31 12/27/18 08:31 12/27/18 08:31 12/25/18 12/25/18 12/26/18 16:35 17:05 08:29 RBC 4.23 3.82 Hgb 11.0 L 10.1 L Hct 33.2 L 30.0 L Urine Opiates Screen NEGATIVE - Discharge information/Instructions Discharge Activity: Activity As Tolerated, Balance Activity w/Rest, No Lifting Over 10 Pounds, Pelvic Rest, Slowly Increase Activity, No tub bath, Walk Frequently Discharge Diet: As Tolerated, Regular Disposition: HOME, SELF-CARE Follow up with: [facility] in: 5, Weeks - with fasting blood glucose
== END 2018-12-27 16:10 | disposition home or self-care (01) | DRG 807 ==
LOC: LC 15:38 → LR 16:32 → 2S 21:05
PROVIDERS: ADMIT Obstetrics & Gynecology Gynecology; ATTEND Obstetrics & Gynecology Gynecology
PROC: 10E0XZZ Delivery of Products of Conception, External Approach (ICD-10-PCS; principal; 2018-12-25)
PROC: 10907ZC Drainage of Amniotic Fluid, Therapeutic from Products of Conception, Via Natural or Artificial Opening (ICD-10-PCS; 2018-12-25)
PROC: 4A1HXCZ Monitoring of Products of Conception, Cardiac Rate, External Approach (ICD-10-PCS; 2018-12-25)
DX: O24.420 Gestational diabetes mellitus in childbirth, diet controlled (principal); Z37.0 Single live birth; O99.02 Anemia complicating childbirth; D64.9 Anemia, unspecified; O99.52 Diseases of the respiratory system complicating childbirth; J45.909 Unspecified asthma, uncomplicated; O62.3 Precipitate labor; O99.824 Streptococcus B carrier state complicating childbirth; O69.81X0 Labor and delivery complicated by cord around neck, without compression, not applicable or unspecified; O99.333 Smoking (tobacco) complicating pregnancy, third trimester; F17.200 Nicotine dependence, unspecified, uncomplicated; Z79.899 Other long term (current) drug therapy; Z3A.37 37 weeks gestation of pregnancy
CPT/HCPCS: 36415; 80307; 81005; 85025; 85027; 86592; 86850; 86900; 86901; J2540; J2590; J3490

== ENCOUNTER 2019-04-21 18:56 | Emergency (ER) | payer MEDICAID, OTHER ==
[2019-04-21 19:02] VITALS: BP 146/84
--- NOTE | 2019-04-21 19:40 | ER Document Report ---
Addendum entered and electronically signed by NAZARIO MEEHAN FNP 04/22/19 11:34: Course - Re-evaluation Re-evalutation: 04/22/19 11:33 [facility] pharmacy in [place] called to clarify the prescription. I clarified to give the patient 450 mg every 8 hours for 7 days #63. - Vital Signs Vital signs: Temp Pulse Resp BP Pulse Ox 98.1 F 93 20 146/84 H 99 04/21/19 19:00 04/21/19 19:00 04/21/19 19:00 04/21/19 19:00 04/21/19 19:00 Original Note: ED Skin Rash/Insect Bite/Abscs - General Chief Complaint: Abscess Stated Complaint: POSSIBLE ABSCESS Time Seen by Provider: 04/21/19 19:20 Primary Care Provider: RYDER SUTTON MD [ACTIVE STAFF] - Follow up as needed Notes: 38-year-old otherwise healthy female presents the emergency department with chief complaint of multiple abscesses. She noticed a small abscess form on the lateral canthus of her right eye approximately 3 days ago. She has 2 additional abscesses on her right flank and her right lower back. She believes it is due to stress that she has no history of abscesses or MRSA infection. She states that the small abscess on her face was proceeded with a headache and then pressure followed by a small lesion. Patient denies fevers, denies any red streaks, denies any warmth over the site, denies any recent illness, denies IV drug use. No other complaints TRAVEL OUTSIDE OF THE [place] IN LAST 30 DAYS: No - Related Data Allergies/Adverse Reactions: No Known Allergies Allergy (Verified 04/21/19 18:57) Past Medical History - Social History Smoking Status: Unknown if Ever Smoked Family History: Reviewed & Not Pertinent Pulmonary Medical History: Reports: Hx Asthma Renal/ Medical History: Denies: Hx Peritoneal Dialysis Psychiatric Medical History: Reports: Hx Anxiety - Panic attacks, Hx Depression Past Surgical History: Reports: Hx Cholecystectomy, Hx Tonsillectomy Review of Systems - Review of Systems Constitutional: See HPI EENT: No symptoms reported Cardiovascular: No symptoms reported Respiratory: No symptoms reported Gastrointestinal: No symptoms reported Genitourinary: No symptoms reported Female Genitourinary: No symptoms reported Musculoskeletal: No symptoms reported Skin: See HPI Hematologic/Lymphatic: No symptoms reported Neurological/Psychological: No symptoms reported Physical Exam - Vital signs Vitals: Temp Pulse Resp BP Pulse Ox 98.1 F 93 20 146/84 H 99 04/21/19 19:00 04/21/19 19:00 04/21/19 19:00 04/21/19 19:00 04/21/19 19:00 - Notes Notes: PHYSICAL EXAMINATION: Reviewed vital signs and charting by RN GENERAL: Alert, interacts well. No acute distress. HEAD: Normocephalic, atraumatic. EYES: Pupils equal and round. Extraocular movements intact. ENT: Oral mucosa moist, tongue midline. NECK: Full range of motion. Trachea midline. EXTREMITIES: Moves all 4 extremities spontaneously. No edema, No cyanosis. PSYCH: Normal affect, normal mood. SKIN: Warm, dry, normal turgor. Small abscess mildly scabbed over on the latera l canthus of the right eye with no active draining, 2 large abscesses on the right flank and right lower back, the lower 1 with purulent discharge, area is not warm to touch, no red streaks Course - Re-evaluation Re-evalutation: 04/21/19 21:10 Performed incision and drainage in the 2 areas on her flank and lower back on the right side. There was a small amount of purulent discharge that was expressed and the superior abscess moderate amount of bleeding. Plan is to ensure that we get adequate bleeding control prior to the patient discharging. Plan is to place her on clindamycin. She is stable for discharge with strict return precautions. - Vital Signs Vital signs: Temp Pulse Resp BP Pulse Ox 98.1 F 93 20 146/84 H 99 04/21/19 19:00 04/21/19 19:00 04/21/19 19:00 04/21/19 19:00 04/21/19 19:00 Procedures - Incision and Drainage Right Back Type: Simple Anesthetic type: 1% Lidocaine Blade size: 11 I&D procedure: Shurclens applied Incision Method: Incision made by scalpel Right Lower Back Type: Simple Anesthetic type: 1% Lidocaine Blade size: 11 I&D procedure: Shurclens applied Incision Method: Incision made by scalpel Discharge - Discharge Clinical Impression: Abscess Condition: Good Disposition: HOME, SELF-CARE Instructions: Abscess ([facility]), Post Incision and Drainage Additional Instructions: You were seen for an abscess that required drainage. Please clean this area with soap and water twice daily and apply a topical antibiotic. Dress the area after each cleaning. Please take the clindamycin 3 times per day for 7 days. Please return if you develop fever, vomiting, the pain at the site worsens, you notice spreading redness from the area, or you have any other symptoms that are concerning to you. Referrals: RYDER SUTTON MD [ACTIVE STAFF] - Follow up as needed
[2019-04-21] MEDS ORDERED: LIDOCAINE 1% INJ (10 MG/ML) 10 ML MDV INJ ONE (20:00)
[2019-04-21] MEDS ORDERED: CLINDAMYCIN HCL 150 MG CAPSULE PO ONE (21:14)
== END 2019-04-21 21:58 | disposition home or self-care (01) ==
LOC: ER 18:56
DX: L02.01 Cutaneous abscess of face (principal); L02.212 Cutaneous abscess of back [any part, except buttock and flank]; Z90.49 Acquired absence of other specified parts of digestive tract
CPT/HCPCS: 87070; 87075; 87077; 87186; 87205; 99283

== ENCOUNTER 2019-08-30 17:06 | Emergency (ER) | payer OTHER ==
[2019-08-30] MEDS ORDERED: IPRATROPIUM/ALBUTEROL 0.5-2.5 MG/3 ML AMPUL NEB ONE (17:52)
--- NOTE | 2019-08-30 18:16 | ER Document Report ---
HPI - HPI Time Seen by Provider: 08/30/19 17:42 Pain Level: Denies Notes: 39-year-old female with a hx of asthma presents emergency room for complaints of cough for the last month that never really went away but is become progressively worse over the last 8 days sore throat the last 2 days. Patient states she has a pro-air that she has been using intermittently. Reports 10 mucus. Denies any chest pain shortness of breath nausea vomiting diarrhea. Start [id number] cold medication without relief. Patient did not get a flu shot this year patient does work at a [employer] where she states she sees people "all day". Denies fevers, chills, chest pain,palpitations, shortness of breath, dyspnea, nausea, vomiting, diarrhea, abdominal pain, hematuria,blurred vision, double vision, loss of vision, speech changes, LH, dizziness, syncope, headaches, wheezing, nec k pain, weakness, bowel or bladder dysfunction, saddle anesthesia, numbness or tingling in bilateral upper or lower extremities equally, muscle paralysis, weakness in bilateral upper or lower extremities equally or rash. - REPRODUCTIVE Reproductive: DENIES: : Past Medical History - General Information source: Patient - Social History Smoking Status: Current Every Day Smoker Family History: Reviewed & Not Pertinent Patient has suicidal ideation: No Patient has homicidal ideation: No Pulmonary Medical History: Reports: Hx Asthma Renal/ Medical History: Denies: Hx Peritoneal Dialysis Psychiatric Medical History: Reports: Hx Anxiety - Panic attacks, Hx Depression Past Surgical History: Reports: Hx Cholecystectomy, Hx Tonsillectomy Vertical Provider Document - CONSTITUTIONAL Agree With Documented VS: Yes Exam Limitations: No Limitations General Appearance: WD/WN Notes: PHYSICAL EXAMINATION: reviewed vital signs by RN GENERAL: Well-appearing, well-nourished and in no acute distress. HEAD: Atraumatic, normocephalic. EYES: Pupils equal round and reactive to light, extraocular movements intact, conjunctiva are normal. ENT: Nares patent, oropharynx clear without exudates. Moist mucous membranes. NECK: Normal range of motion, supple without lymphadenopathy LUNGS: Breath sounds clear to auscultation bilaterally and equal. No wheezes rales or rhonchi. HEART: Regular rate and rhythm without murmurs ABDOMEN: Soft, nontender, nondistended abdomen. No guarding, no rebound. No masses appreciated. Female : deferred Musculoskeletal: Normal range of motion, no pitting or edema. No cyanosis. NEUROLOGICAL: Cranial nerves grossly intact. Normal speech, normal gait. Normal sensory, motor exams PSYCH: Normal mood, normal affect. SKIN: Warm, Dry, normal turgor, no rashes or lesions noted. - INFECTION CONTROL TRAVEL OUTSIDE OF THE [place] IN LAST 30 DAYS: No Course - Re-evaluation Re-evalutation: 08/30/19 18:42 Afebrile vital stable no distress. Nurse's notes reviewed. She reports she feels much better after breathing treatment rapid strep is negative. Advised to take medications as directed. Carry rescue inhaler on your person. To take at home [id number] medications. She is getting be treated for a sinusitis that she has been fighting for well over a month, advised take medication with food. Follow-up with your primary care provider within the next 24 to 48 hours. After performing a Medical Screening Examination, I estimate there is LOW risk for ACUTE CORONARY SYNDROME, PULMONARY EMBOLI, RESPIRATORY FAILURE, SEPSIS OR MENINGITIS, thus I consider the discharge disposition reasonable. I have reevaluated this patient multiple times and no significant life threatening changes are noted. The patient and I have discussed the diagnosis and risks, and we agree with discharging home with close follow-up. We also discussed returning to the Emergency Department immediately if new or worsening symptoms occur. We have discussed the symptoms which are most concerning (e.g., changing or worsening pain, trouble swallowing or breathing, neck stiffness, fever) that necessitate immediate return. - Vital Signs Vital signs: Temp Pulse Resp BP Pulse Ox 98.6 F 77 18 120/85 97 08/30/19 17:44 08/30/19 17:44 08/30/19 17:44 08/30/19 17:44 08/30/19 17:44 Discharge - Discharge Clinical Impression: Acute bacterial sinusitis, URI (upper respiratory infection), Asthma Condition: Stable Disposition: HOME, SELF-CARE Instructions: Asthma ([facility]), Sinusitis ([facility]) Prescriptions: Amox Tr/Potassium Clavulanate [Augmentin 875-125 Tablet] 1 tab PO BID 10 Days #20 tablet Forms: Return to Work Referrals: ANAHI GARCIA MD [ACTIVE STAFF] - Follow up as needed
[2019-08-30 19:46] VITALS: BP 111/82
== END 2019-08-30 20:00 | disposition home or self-care (01) ==
LOC: ER 17:06
DX: J01.80 Other acute sinusitis (principal); B96.89 Other specified bacterial agents as the cause of diseases classified elsewhere; J06.9 Acute upper respiratory infection, unspecified; J45.909 Unspecified asthma, uncomplicated; F17.200 Nicotine dependence, unspecified, uncomplicated; Z90.49 Acquired absence of other specified parts of digestive tract
CPT/HCPCS: 87070; 87880; J7620; 94640; 99283